=== PATIENT | male | born 1975 | race Two or more races ===

== ENCOUNTER 2017-04-20 12:09 | Emergency (ER) | payer MEDICAID, OTHER, SELFPAY ==
[~2017-04-20] VITALS: Ht 167.6 cm; Wt 61.4 kg
--- NOTE | 2017-04-20 13:41 | REP ---
Left shoulder series: Three views. History: Left shoulder pain. History of rotator cuff repair. No comparison views. Findings: The left glenohumeral and acromioclavicular joints are normally aligned. The AC joint is diastatic consistent with distal claviculectomy in the past. There is subcortical cyst formation in the superolateral humeral head. No bony erosive or destructive lesion is seen. Periarticular soft tissues are unremarkable. Impression: Status post resection of the distal clavicle. Subcortical cyst formation in the humeral head which may be a feature of impingement. No acute bony abnormality. Signed by Hari Pennington MD 04/20/2017 02:10 P
[2017-04-20] MEDS ORDERED: NAPR500T PO (14:12)
[2017-04-20 14:22] VITALS: BP 117/84
== END 2017-04-20 14:25 | disposition home or self-care (01) ==
LOC: M ED 12:09
DX: S46.912A Strain of unspecified muscle, fascia and tendon at shoulder and upper arm level, left arm, initial encounter (principal); X50.0XXA Overexertion from strenuous movement or load, initial encounter; Y92.89 Other specified places as the place of occurrence of the external cause; Y93.89 Activity, other specified; Y99.0 Civilian activity done for income or pay

== ENCOUNTER → 2017-07-27 | Outpatient (REF) | payer OTHER ==
[~2017-07-27] MED LIST: NAPR500T PO
[2017-07-27 13:27] LABS: BASO % 0.7 % (0.0-1.0); EOS # 0.4 10^3/uL (0.0-0.50); EOS % 7.5 % (0.0-3.0); IMMATURE GRANULOCYTE % 0.2 % (0-0); LYMPH # 1.2 10^3/uL (1.5-4.5); LYMPH % 21.4 % (24.0-44.0); MEAN CORPUSCULAR HEMOGLOBIN 30.6 pg (27.0-33.0); MEAN CORPUSCULAR HGB CONC 31.7 g/dl (32.0-36.5); MEAN CORPUSCULAR VOLUME 96.6 fl (80.0-96.0); MONO # 0.6 10^3/uL (0.0-0.8); MONO % 9.7 % (0.0-5.0); NEUTROPHILS # 3.5 10^3/uL (1.8-7.7); NEUTROPHILS % 60.5 % (36.0-66.0); PLATELET COUNT, AUTOMATED 157 10^3/uL (150-450); RED CELL DISTRIBUTION WIDTH 11.5 % (11.5-14.5); WHITE BLOOD COUNT 5.8 10^3/uL (4.0-10.0)
[2017-07-27 13:35] LABS: INR 0.93
[2017-07-27 13:50] LABS: ALBUMIN 3.7 GM/DL (3.2-5.2); ALBUMIN/GLOBULIN RATIO 1.12 (1.00-1.93); ALKALINE PHOSPHATASE 67 U/L (45-117); ALT/SGPT 88 U/L (12-78); ANION GAP 7 MEQ/L (8-16); AST/SGOT 77 U/L (7-37); BILIRUBIN,TOTAL 0.7 MG/DL (0.2-1.0); BLOOD UREA NITROGEN 11 MG/DL (7-18); CALCIUM LEVEL 8.9 MG/DL (8.5-10.1); CARBON DIOXIDE LEVEL 28 MEQ/L (21-32); CHLORIDE LEVEL 107 MEQ/L (98-107); CHOLESTEROL LEVEL 197 MG/DL (<200); CREATININE FOR GFR 0.85 MG/DL (0.70-1.30); GLOMERULAR FILTRATION RATE > 60.0 (>60); GLUCOSE, FASTING 135 MG/DL (70-105); POTASSIUM SERUM 4.1 MEQ/L (3.5-5.1); SODIUM LEVEL 142 MEQ/L (136-145); TRIGLYCERIDES LEVEL 116 MG/DL (<150)
== END ==
LOC: M LAB REF 11:58
PROVIDERS: ATTEND Nurse Practitioner Adult Health
DX: Z00.00 Encounter for general adult medical examination without abnormal findings (principal)

== ENCOUNTER 2019-06-29 11:21 | Emergency (ER) | payer MEDICAID, OTHER ==
[~2019-06-29] VITALS: Ht 167.6 cm; Wt 60.2 kg
[~2019-06-29 11:21] MED LIST changes: +NAPR-837 PO; -NAPR500T PO
[2019-06-29] MEDS ORDERED: IBUP-1022 PO (11:28)
[2019-06-29] MEDS ORDERED: ACETAMINOPHEN 325 MG TAB PO ONE (12:00)
[2019-06-29] MEDS ORDERED: KETOROLAC 60 MG/2 ML VIAL (J1885) IM ONE (12:00)
--- NOTE | 2019-06-29 12:15 | REP ---
Clinical: Trauma centered at the mandible. Technique: Axial noncontrast images through the facial bones to include the mandible with coronal and sagittal re-formations. Findings: There is a transverse nondisplaced fracture through the right jason-mandible just lateral to the midline. There is a displaced fracture through the left mandibular angle. There is overlying traumatic soft tissue swelling. Remainder of the facial bones including zygomatic arches appear intact. The bilateral temporomandibular joints are intact. The sinuses are relatively well aerated with minimal mucosal thickening and small amount of fluid in the sphenoid sinus. The bilateral orbits are symmetric and without evidence for acute pathology/trauma. Impression: Multipartite fractures of the mandible. Electronically Signed by Jeffrey Vela MD 06/29/2019 12:06 P
[2019-06-29] MEDS ORDERED: CLINDAMYCIN 900 MG in IV 1 EA IV ONE (13:30)
[2019-06-29 14:27] VITALS: BP 122/84
[2019-06-29 14:51] LABS: BASO # 0.1 10^3/uL (0.0-0.2); BASO % 0.3 % (0.0-1.0); EOS % 0.1 % (0.0-3.0); HEMATOCRIT 45.7 % (42.0-52.0); HEMOGLOBIN 14.7 g/dl (13.5-17.5); LYMPH # 1.5 10^3/uL (1.5-5.0); LYMPH % 8.5 % (24.0-44.0); MEAN CORPUSCULAR HEMOGLOBIN 30.6 pg (27.0-33.0); MEAN CORPUSCULAR HGB CONC 32.2 g/dl (32.0-36.5); MEAN CORPUSCULAR VOLUME 95.2 fl (80.0-96.0); MONO # 1.8 10^3/uL (0.0-0.8); NEUTROPHILS # 14.4 10^3/uL (1.5-8.5); NEUTROPHILS % 80.5 % (36.0-66.0); PLATELET COUNT, AUTOMATED 286 10^3/uL (150-450); WHITE BLOOD COUNT 17.8 10^3/uL (4.0-10.0)
[2019-06-29] MEDS ORDERED: PERCOCET 5MG/325MG TAB PO ONE (15:00)
== END 2019-06-29 15:18 | disposition short-term general hospital (02) ==
LOC: M ED 11:21
DX: S02.601A Fracture of unspecified part of body of right mandible, initial encounter for closed fracture (principal); S02.602A Fracture of unspecified part of body of left mandible, initial encounter for closed fracture; W22.8XXA Striking against or struck by other objects, initial encounter; Y92.89 Other specified places as the place of occurrence of the external cause; Z88.0 Allergy status to penicillin; F17.290 Nicotine dependence, other tobacco product, uncomplicated
CPT/HCPCS: 70486; 80047; 85025; 96365; 96372; 99284; J1885

== ENCOUNTER → 2020-01-14 | Outpatient (CLI) | payer OTHER ==
[~2020-01-14] MED LIST changes: +IBUP-1022 PO
== END ==
LOC: M LABSMTC 12:38
PROVIDERS: ATTEND Family Medicine
DX: Z03.818 Encounter for observation for suspected exposure to other biological agents ruled out (principal); Z11.59 Encounter for screening for other viral diseases

== ENCOUNTER 2020-08-17 14:55 | Emergency (ER) | payer OTHER ==
[~2020-08-17] VITALS: Ht 167.6 cm; Wt 61.5 kg
--- NOTE | 2020-08-17 16:00 | REP ---
INDICATION: trauma COMPARISON: None. TECHNIQUE: Four views right hand. FINDINGS: A tiny calcific density is seen near the hamate and base of 5th metacarpal on 1 of the oblique views. Small chip fracture cannot be excluded in this region. Otherwise I see no acute fracture, dislocation or intrinsic bone disease. IMPRESSION: Tiny calcific density along the hamate and base of 5th metacarpal on 1 of the oblique views. Small chip fracture cannot be excluded. <Electronically signed by González Lisa > 08/17/20 [id number]
[2020-08-17 16:34] VITALS: BP 138/79
== END 2020-08-17 16:35 | disposition home or self-care (01) ==
LOC: M ED 14:55
DX: S62.141A Displaced fracture of body of hamate [unciform] bone, right wrist, initial encounter for closed fracture (principal); W22.8XXA Striking against or struck by other objects, initial encounter; Y92.89 Other specified places as the place of occurrence of the external cause

== ENCOUNTER 2022-11-14 18:23 | Emergency (ER) | payer OTHER ==
[~2022-11-14] VITALS: Ht 167.6 cm; Wt 65.8 kg
[2022-11-14 18:23] VITALS: BP 150/97
== END 2022-11-14 21:58 | disposition left against medical advice (07) ==
LOC: M ED 18:23
DX: T23.001A Burn of unspecified degree of right hand, unspecified site, initial encounter (principal); X10.2XXA Contact with fats and cooking oils, initial encounter; Y92.89 Other specified places as the place of occurrence of the external cause; Y93.89 Activity, other specified; Y99.8 Other external cause status; Z88.0 Allergy status to penicillin; Z53.21 Procedure and treatment not carried out due to patient leaving prior to being seen by health care provider

== ENCOUNTER → 2024-07-11 | Outpatient (CLI) | payer MEDICAID | LOC: M OUTALCOH 08:02 | PROVIDERS: ATTEND Psychiatry & Neurology Psychiatry | DX: Z03.89 Encounter for observation for other suspected diseases and conditions ruled out (principal) ==

== ENCOUNTER 2024-07-22 15:50 | Outpatient (RCR) | payer MEDICAID | END 2024-07-27 | LOC: M OUTALCOH 15:50 | PROVIDERS: ATTEND Psychiatry & Neurology Psychiatry | DX: F10.10 Alcohol abuse, uncomplicated (principal) ==

== ENCOUNTER 2024-08-08 15:48 | Outpatient (RCR) | payer MEDICAID | END 2024-08-27 | LOC: M OUTALCOH 15:48 | PROVIDERS: ATTEND Psychiatry & Neurology Psychiatry | DX: F10.10 Alcohol abuse, uncomplicated (principal) ==